=== PATIENT | female | born 1945 | race Caucasian/White ===

== ENCOUNTER 2021-11-10 10:55 | Outpatient (CLI) | payer MEDICARE | END 2021-11-10 10:56 | disposition home or self-care (01) | LOC: BICMAMMO 10:55 | PROVIDERS: ATTEND Internal Medicine | DX: Z12.31 Encounter for screening mammogram for malignant neoplasm of breast (principal) | CPT/HCPCS: 77063; 77067 ==

== ENCOUNTER 2022-06-23 18:21 | Observation (INO) | payer MEDICARE ==
[2022-06-23] MEDS ORDERED: Aspirin Chewable 81 MG TAB ONE (18:45)
[2022-06-23 18:57] LABS: #Eosinphils 0.2 thou/uL (0.0-0.7); #Lymphocytes 3.1 thou/uL (1.20-3.40); #Monocytes 0.5 thou/uL (0.11-0.59); #Neutrophils 3.6 thou/uL (1.40-6.50); %Basophils 0.4 % (0.0-1.0); %Eosinophils 2.1 % (0.0-10.0); %Lymphocytes 41.3 % (21.0-51.0); %Monocytes 7.1 % (0.0-10.0); Hemoglobin 15.8 g/dL (12.0-16.0); Mean Corpuscular HGB CONC 34.4 g/dL (32.0-36.0); Mean Corpuscular Hemoglobin 33.7 pg (27.0-31.0); Mean Corpuscular Volume 98.2 fl (78.0-98.0); Platelet Count 225 10x3/uL (130-400); RBC Distribution Width 11.9 % (11.5-14.5); Red Blood Cell (RBC) Count 4.68 mill/uL (4.20-5.40); White Blood Cell (WBC) Count 7.4 10x3/uL (4.8-10.8)
[2022-06-23 21:19] LABS: Albumin 3.7 g/dL (3.4-4.8)
[2022-06-23 21:20] LABS: Chloride 108 mmol/L (98-107); Potassium 4.1 mmol/L (3.5-5.1); Sodium 140 mmol/L (136-145)
[2022-06-23 21:21] LABS: Calcium 9.1 mg/dL (7.8-10.44); Glucose 94 mg/dL (83-110)
[2022-06-23 21:22] LABS: Globulin 3.2 g/dL (2.4-3.5); Protein, Total 6.9 g/dL (5.8-8.1)
[2022-06-23 21:23] LABS: Anion Gap 12 mmol/L (10-20); Bilirubin, Total 0.3 mg/dL (0.2-1.2); Carbon Dioxide 24 mmol/L (23-31)
[2022-06-23 21:24] LABS: Alkaline Phosphatase 75 U/L (40-110)
[2022-06-23 21:25] LABS: Calc. Creatinine Clearance 0 mL/min (70-130); Estimated GFR 79
[2022-06-23 21:26] LABS: AST (SGOT) 24 U/L (5-34); BUN (Urea Nitrogen) 16 mg/dL (9.8-20.1)
[2022-06-23 21:27] LABS: ALT (SGPT) 22 U/L (8-55)
[2022-06-23] MEDS ORDERED: Ondansetron PF 4 MG/2 ML Vial IVP PRN (21:30)
[2022-06-23] MEDS ORDERED: Ondansetron ODT 4 MG TAB SL PRN (21:30)
[2022-06-23] MEDS ORDERED: Acetaminophen 325 MG TAB PO PRN (21:30)
[2022-06-23 22:16] LABS: Troponin I Less than 0.010 ng/mL (< 0.028)
[2022-06-23] MEDS ORDERED: Nitroglycerin 0.4 MG TAB (25 Tab Bottle) SL PRN (22:34)
[2022-06-23] MEDS ORDERED: Senokot S 8.6-50 MG TAB PO PRN (22:35)
[2022-06-23 23:27] VITALS: BMI 29.1
[2022-06-24 02:13] LABS: Troponin I Less than 0.010 ng/mL (< 0.028)
[2022-06-24 08:13] VITALS: BP 138/63; TEMP 97.3
[2022-06-24] MEDS ORDERED: Famotidine 20 MG TAB PO SCH (09:00)
[2022-06-24] MEDS ORDERED: Aspirin Chewable 81 MG TAB PO SCH (09:00)
[2022-06-24] MEDS ORDERED: Niacin 500 MG TAB PO SCH (09:00)
[2022-06-24] MEDS ORDERED: Multivit, Therapeutic 1 TAB PO SCH (09:00)
[2022-06-24] MEDS ORDERED: Sertraline 25 MG TAB PO SCH (09:00)
[2022-06-26] MEDS ORDERED: FLU VACC QS2022-23(65YR UP)/PF 240 MCG/0.7 ML SYRINGE IM ONE (09:00)
== END 2022-06-24 11:20 | disposition home or self-care (01) ==
LOC: ERS 18:21 → 2SW 21:20
PROVIDERS: ADMIT Family Medicine; ATTEND Family Medicine
DX: R07.89 Other chest pain (principal); I25.10 Atherosclerotic heart disease of native coronary artery without angina pectoris; I49.5 Sick sinus syndrome; E78.5 Hyperlipidemia, unspecified; I10 Essential (primary) hypertension; I25.2 Old myocardial infarction; Z79.82 Long term (current) use of aspirin; Z79.899 Other long term (current) drug therapy; Z88.2 Allergy status to sulfonamides; Z95.0 Presence of cardiac pacemaker; Z95.5 Presence of coronary angioplasty implant and graft; Z20.822 Contact with and (suspected) exposure to COVID-19
CPT/HCPCS: 71045; 80053; 84484 ×3; 85025; 93005; 94760; 99285; G0378 ×3; U0003; U0005; 36415